=== PATIENT | female | born 1935 | race Caucasian/White ===

== ENCOUNTER 2018-02-06 04:07 | Emergency (ER) | payer MEDICARE, OTHER ==
[~2018-02-06] VITALS: Ht 157.5 cm; Wt 72.6 kg
[2018-02-06] MEDS ORDERED: HYDR-86 PO (04:25)
[2018-02-06] MEDS ORDERED: Zestril40 MG PO (04:25)
[2018-02-06] MEDS ORDERED: MONT10T PO (04:25)
[2018-02-06] MEDS ORDERED: DOXE10 PO (04:25)
[2018-02-06] MEDS ORDERED: FURO20 PO (04:25)
[2018-02-06] MEDS ORDERED: CYAN1000I IM (04:26)
[2018-02-06] MEDS ORDERED: ALPR1 PO (04:26)
[2018-02-06] MEDS ORDERED: FOLI400 PO (04:26)
== END 2018-02-06 05:59 | disposition home or self-care (01) ==
LOC: ER 04:07
DX: M25.461 Effusion, right knee (principal); M25.861 Other specified joint disorders, right knee; I10 Essential (primary) hypertension; Z87.891 Personal history of nicotine dependence
CPT/HCPCS: 29505; 73562-RT; 99283

== ENCOUNTER 2019-07-04 08:57 | Inpatient (IN) | payer MEDICARE, OTHER ==
[~2019-07-04] VITALS: Ht 157.5 cm; Wt 77.9 kg
[~2019-07-04 08:57] MED LIST: ALPR1 PO; CYAN1000I IM; DOXE10 PO; FOLI400 PO; FURO20 PO; HYDR-86 PO; MONT10T PO; Zestril40 MG PO
[2019-07-04] MEDS ORDERED: ALPR1 PO (09:24)
--- NOTE | 2019-07-04 09:42 | NUR ---
History, Chart, Medications and Allergies reviewed before start of procedure. Patient confirms NPO status and agrees with scheduled surgery. Lungs clear T/O to Auscultation. Pre-Op teaching done. Pt verbalizes understanding. Patient reports completing Chlorhexadine shower X2 prior to admission to hospital. PATIENT HAS FULL TOP PLATE W/ADHESIVE IN PLACE, STATES WILL NOT COME OUT, WILL NOTIFY DR ARRIAZA. GLASSES WILL BE PLACED IN PACU FOR PATIENT.
--- NOTE | 2019-07-04 10:24 | NUR ---
[employer] REPORT COMPLETED AT BEDSIDE WITH ANGELITO BARNES RN.
--- NOTE | 2019-07-04 10:25 | NUR ---
PATIENT UP TO BR FOR UNMEASURED VOID.
--- NOTE | 2019-07-04 18:40 | NUR ---
POST OP: REPORT RECIEVED FROM [facility]. PT TO UNIT AT ABOUT 1330. VSS, A/O. SEE HEAD TO TOE ASSESSMENT.
--- NOTE | 2019-07-04 19:30 | NUR ---
SUMMARY: PT IS POD0 R TKA. DOING WELL POST OP, VSS, A/O. ABLE TO VOID. FULL SENSATION IN R LEG BY THE END OF SHIFT. PHYSICAL THERAPY TO AMBULATE TOMORROW. SURGICAL SITE WNL. SEE EMAR FOR PAIN MANAGEMENT. NO ACUTE CONCERNS AT THIS TIME. REPORT GIVEN TO NICHOLAS GA
[2019-07-05 04:03] LABS: BASOPHILS ABSOLUTE AUTO 0.02 K/mm3 (0.00-0.23); BASOPHILS PERCENT AUTO 0 % (0-2); EOSINOPHILS PERCENT AUTO 0 % (0-6); Hematocrit 37.6 % (33.0-51.0); Hemoglobin 12.2 g/dL (11.5-16.0); IMMATURE GRAN ABSOLUTE AUTO 0.02 K/mm3 (0.00-0.10); IMMATURE GRAN PERCENT AUTO 0 % (0-1); LYMPHOCYTES ABSOLUTE AUTO 1.08 K/mm3 (0.84-5.20); LYMPHOCYTES PERCENT AUTO 12 % (21-46); MONOCYTES ABSOLUTE AUTO 0.79 K/mm3 (0.16-1.47); MONOCYTES PERCENT AUTO 9 % (4-13); Mean Corpuscular HGB 30.1 pg (26.0-34.0); Mean Corpuscular HGB Conc 32.4 g/dL (31.5-36.5); Mean Corpuscular Volume 93 fL (80-100); Mean Platelet Volume 9.7 fL (9.1-12.4); NEUTROPHILS ABSOLUTE AUTO 7.34 K/mm3 (1.96-9.15); NEUTROPHILS PERCENT AUTO 79 % (41-73); Platelet Count 203 K/mm3 (150-400); RDW Coefficient Variation 12.1 % (11.7-14.2); RDW Standard Deviation 41.4 fL (35.1-46.3); Red Blood Cell Count 4.05 M/mm3 (3.80-5.20); White Blood Cell Count 9.25 K/mm3 (4.00-11.30)
[2019-07-05 04:26] LABS: Bun/Creatinine Ratio 18.4 (12.0-20.0); Calcium, Blood 8.5 mg/dL (8.5-10.1); Creatinine, Blood 1.03 mg/dL (0.40-1.00); Potassium, Blood 4.8 mmol/L (3.5-5.5)
--- NOTE | 2019-07-05 05:15 | NUR ---
SHIFT SUMMARY HAS BEEN ABLE TO TOLERATE GETTING OOB TO AMBULATE TO BSC USING FWW AND GAIT BELT. WEIGHT BEARING TOLERATED. PAIN IS MUCH BETTER MANAGED AFTER SEVERAL DOSES THROUGHOUT SHIFT. RESTED WELL AT TIMES. STATES SHE IS LOOKING FORWARD TO GOING HOME IF POSSIBLE TODAY. SAFETY MEASURES IN PLACE. WILL GIVE HAND OFF TO ONCOMING SHIFT USING SBAR.
--- NOTE | 2019-07-05 09:47 | NUR ---
PT IN [facility] AT THIS TIME
[2019-07-05] MEDS ORDERED: ASPI81CH PO (10:11)
[2019-07-05] MEDS ORDERED: ACET500 PO (10:11)
[2019-07-05] MEDS ORDERED: OXYC5 PO (10:12)
--- NOTE | 2019-07-05 10:19 | NUR ---
07/05/19 1019 Myriam Cedeño VERIFICATIONS: EDIT CHART.
--- NOTE | 2019-07-05 16:29 | NUR ---
DISCHARGE: PACKET PRINTED AND DISCHARGE EDUCATION GIVEN. PT VERBALIZED UNDERSTANDING. CONFIRMED OUTPATIENT PHYSICAL THERAPY APPOINTMENTS. PT GIVEN SCRIPTS. PT LEFT UNIT VIA WHEELCHAIR WITH DAUGHTER AND CAMILA TAVERAS.
== END 2019-07-05 16:23 | disposition home or self-care (01) | DRG 470 ==
LOC: ORSCMMR 08:57 → SURS 10:19 → ORSCMMR 10:19 → ORD 10:30 → SURS 14:00
PROVIDERS: ADMIT Orthopaedic Surgery
PROC: 0SRC0J9 Replacement of Right Knee Joint with Synthetic Substitute, Cemented, Open Approach (ICD-10-PCS; principal; 2019-07-04 10:30)
DX: M17.11 Unilateral primary osteoarthritis, right knee (principal); K21.9 Gastro-esophageal reflux disease without esophagitis; I10 Essential (primary) hypertension; J44.9 Chronic obstructive pulmonary disease, unspecified; E66.9 Obesity, unspecified; Z79.51 Long term (current) use of inhaled steroids; Z79.899 Other long term (current) drug therapy; Z88.5 Allergy status to narcotic agent; Z88.2 Allergy status to sulfonamides; Z88.8 Allergy status to other drugs, medicaments and biological substances; Z87.891 Personal history of nicotine dependence
CPT/HCPCS: 36415; 73560-RT; 80048; 83735; 85025; 88300; 97110; 97116; 97162; 97530; C1713; C1776; J0171; J0690; J0735; J1100; J1170; J1885; J2250; J2370; J2405; J2704; J2795; J3010; J3490; J7120

== ENCOUNTER 2019-07-09 11:37 | Inpatient (IN) | payer MEDICARE, OTHER ==
[~2019-07-09] VITALS: Ht 157.5 cm; Wt 82.1 kg
[~2019-07-09 11:37] MED LIST changes: +ACET500 PO; +ASPI81CH PO; +OXYC5 PO
[2019-07-09 12:31] LABS: BASOPHILS ABSOLUTE AUTO 0.02 K/mm3 (0.00-0.23); BASOPHILS PERCENT AUTO 0 % (0-2); EOSINOPHILS ABSOLUTE AUTO 0.14 K/mm3 (0.00-0.68); EOSINOPHILS PERCENT AUTO 2 % (0-6); Hematocrit 37.5 % (33.0-51.0); Hemoglobin 12.2 g/dL (11.5-16.0); IMMATURE GRAN ABSOLUTE AUTO 0.03 K/mm3 (0.00-0.10); IMMATURE GRAN PERCENT AUTO 0 % (0-1); LYMPHOCYTES ABSOLUTE AUTO 1.47 K/mm3 (0.84-5.20); LYMPHOCYTES PERCENT AUTO 19 % (21-46); MONOCYTES ABSOLUTE AUTO 0.89 K/mm3 (0.16-1.47); MONOCYTES PERCENT AUTO 12 % (4-13); Mean Corpuscular HGB 30.2 pg (26.0-34.0); Mean Corpuscular HGB Conc 32.5 g/dL (31.5-36.5); Mean Corpuscular Volume 93 fL (80-100); Mean Platelet Volume 9.7 fL (9.1-12.4); NEUTROPHILS ABSOLUTE AUTO 5.19 K/mm3 (1.96-9.15); NEUTROPHILS PERCENT AUTO 67 % (41-73); Platelet Count 247 K/mm3 (150-400); RDW Coefficient Variation 12.7 % (11.7-14.2); RDW Standard Deviation 43.4 fL (35.1-46.3); Red Blood Cell Count 4.04 M/mm3 (3.80-5.20); White Blood Cell Count 7.74 K/mm3 (4.00-11.30)
[2019-07-09 12:49] LABS: Alanine Aminotransfer (ALT/SGP 25 U/L (12-78); Albumin/Globulin Ratio 0.8 (0.8-1.8); Alk Phos 83 U/L (50-136); Anion Gap 6 mmol/L (6-16); Aspartate Aminotrans (AST/SGOT 29 U/L (12-37); Bilirubin, Total 1.3 mg/dL (0.1-1.0); Blood Urea Nitrogen 15 mg/dL (8-24); Bun/Creatinine Ratio 21.1 (12.0-20.0); CO2, Blood 27 mmol/L (21-32); Calcium, Blood 8.8 mg/dL (8.5-10.1); Chloride, Blood 104 mmol/L (98-108); Creatinine, Blood 0.71 mg/dL (0.40-1.00); Globulin, Blood 3.8 g/dL (2.2-4.0); Glomerular Filtration Rate >60 (60-); Glucose, Blood 112 mg/dL (70-99); Potassium, Blood 4.5 mmol/L (3.5-5.5); Sodium, Blood 137 mmol/L (136-145); Total Protein, Blood 6.8 g/dL (6.4-8.2)
[2019-07-09] MEDS ORDERED: Alprazolam1 MG PO (15:05)
[2019-07-09] MEDS ORDERED: Norco 10-325 T1 EACH PO (16:22)
[2019-07-09 18:07] LABS: Body Fluid Crystals NEG (NEGATIVE)
[2019-07-09 18:10] LABS: BODY FLUID RBC 0.862 M/mm3 (0-0); RBC Count, Synovial Fluid 862000 /mm3 (0-0); WBC Count, Synovial Fluid 7971 /mm3 (0-180)
--- NOTE | 2019-07-09 18:34 | NUR ---
PT ARRIVED TO THE UNIT AT APPROXIMATELY 1630. PT ALERT AND ORIENTED AT TIME OF ARRIVAL. PT CRYING AND SHAKING R/T PAIN. SHE RATED HER PAIN AT 10/10. PT'S RIGHT LEG WAS ELEVATED ON PILLOWS WITH THE KNEE IN A STRAIGHT POSITION WHICH THE PT REPORTS SHE DID NOT TOLERATE AT HOME. PT ASKED MULTIPLE TIMES FOR A PILLOW TO BE PLACED BEHIND HER KNEE. PT WAS EDUCATED THAT PLACING A PILLOW OR TOWEL BEHIND THE KNEE AND RESTING THE KNEE IN A BENT POSITION WILL CAUSE INCREASED PAIN WITH MOVEMENT AND SHE COULD LOSE THE ABILITY TO STRAIGHTEN THE KNEE. PT REPORTED SHE UNDERSTOOD. PT WAS PROVIDED WITH IV DILAUDID, SHE REPORTED TO THIS RN SHE HAS ONLY HAD RELIEF WITH MORPHINE IN THE PAST. SHE ALSO REPORTED OXYCODONE MADE HER SICK AND NORCO WORKS BETTER. BOTH ORDERS WERE CHANGED PER DR. PHILLIPS. PT'S KNEE IS SWOLLEN AND BRUISED AT TIME OF ARRIVAL. SHE HAS SWELLING AND REDNESS TO THE LATERAL AND MEDIAL SIDES OF HER THIGH. DR. PHILLIPS NOTIFIED OF SWELLING. WILL CONTINUE TO MONITOR.
--- NOTE | 2019-07-09 18:41 | NUR ---
SHIFT SUMMARY PT CONTINUES TO RATE HER PAIN HIGH DESPITE THE USE OF IV PAIN MEDICATION. WHEN PT IS NOT CRYING R/T PAIN AND HAS HAD PAIN MEDICATION, SHE DISTRACTS FROM PAIN AND VISITS WITH NURSES AND OTHER STAFF. AFTER PAIN MEDICATION FLACC SCALE SHOWS PT AT 3/10 BUT PT RATES PAIN AT 9/10. MORPHINE IV DID DECREASE PT'S SELF REPORTED PAIN SCORE TO 8/10. PT HAD RADIOLOGY GUIDED ASPIRATION OF SYNOVIAL FLUID THIS EVENING. PT'S LEG HAS REMAINED ELEVATED ON PILLOWS AND IN THE STRAIGHT POSITION WITH ICE IN PLACE MUCH POSSIBLE. SWELLING AND REDNESS TO THE KNEE AREA APPEARS IMPROVED. PT APPEARS MORE COMFORTABLE THAN ON ADMIT. PT IS TOLERATING PO. PT ON CONTINUOUS PULSE OX FOR HIGH RISK PAIN MANAGMENT. VSS. WILL MONITOR UNTIL REPORT TO ONCOMING RN.
--- NOTE | 2019-07-09 18:46 | NUR ---
DRESSING CHANGE PT'S AQUACEL DRESSING WAS CHANGED. PT HAD SMALL AREAS AT EDGE OF AQUACEL DRESSING THAT APPEARED TO BE OPEN BLISTERS, DR. PHILLIPS NOTIFIED. SKIN BARRIER USED AROUND EDGE OF AQUACEL DRESSING TO PROTECT SKIN FROM FURTHER BLISTERING. WILL CONTINUE TO MONITOR.
[2019-07-09 18:50] LABS: Appearance, Synovial Fluid Bloody (Clear); Color, Synovial Fluid Red (None-P Yel); Lymphs, Synovial Fluid 8 % (0-15); Monocytes/Macrophages, Synovia 2 % (0-65); Neutrophils, Synovial Fluid 90 % (0-24)
--- NOTE | 2019-07-10 16:05 | NUR ---
SUMMARY NO ACUTE CHANGES THIS SHIFT. PT WORKED W/THERAPY. VENOUS DUPLEX PERFORMED TO RULE OUT DVT TO RLE. PT STILL QUITE PAINFUL W/MOVEMENT. MEDICATING PER ORDERS FOR PAIN. POLAR PACK IN PLACE. RLE KEPT STRAIGHT WHILE AT REST.PT APPEARED TO HAVE SENSITIVITY TO ADHESIVE ON AQUACEL; DR PHILLIPS PLACED GUAZE AND ELSA WRAP TO RLE. PT'S DAUGHTER AT BEDSIDE. CALL LIGHT IN REACH.
--- NOTE | 2019-07-11 06:12 | NUR ---
SHIFT SUMMARY HAS RESTED WELL THIS SHIFT. GOT OUT OF BED AND SAT ON COMMODE, WAS UNABLE TO GO. BLADDER SCAN SHOWS 300ML IN BLADDER. WILL GET OOB AND ONTO BSC AGAIN. ICE PLACED TO KNEE REPLENISHED NEEDED THROUGHOUT SHIFT. MEDICATED FOR PAIN X2 THIS SHIFT. DENIES FURTHER NEEDS AT THIS TIME. SAFETY MEASURES IN PLACE. WILL GIVE HAND OFF TO ONCOMING SHIFT USING SBAR.
--- NOTE | 2019-07-11 10:47 | NUR ---
DR MCDONNELL HERE TO SEE PT. DISCUSSED PT PAIN AND MEDS.
--- NOTE | 2019-07-11 11:04 | NUR ---
DR MCDONNELL REPORTED EARLIER THAT PT COULD EAT. DR REPORTS TO HOLD ASA TODAY. AND RESUME TOMMORROW AT ONCE DAILY.
--- NOTE | 2019-07-11 16:39 | NUR ---
DISCUSSED PT'S STATUS WITH DR MCDONNELL.
--- NOTE | 2019-07-11 17:47 | NUR ---
SHIFT SUMMARY PT EATING AND DRINKING WELL, VOIDING. PT BEEN EDUCATED ON PAIN MGMT, I/S. PT BEEN ASSISTED WITH ADL'S PRN. PT BEEN MED PRN FOR PAIN. DR MCDONNELL BEEN TO SEE PT TODAY WELL GIVEN UPDATE THIS AFTERNOON/EVENING. PT WORKED WITH THERAPY. PT USING [address].
--- NOTE | 2019-07-11 19:10 | NUR ---
recvd report from previous shift NICHOLAS Potts. pt in bathroom on commode, calls for asssitance. a/0 x 4, pleasant/cooperative, ambulates to bed with gait belt, fww.
--- NOTE | 2019-07-12 06:02 | NUR ---
SHIFT SUMMARY: VSS, NO ACUTE CHANGES. PT REMAINED A/O X 4, PLEASANT/COOPERATIVE. PT UP TO BATHROOM WITH STANDBY ASSIST, GAIT BELT/FWW. PT REPORTS NO N/V, TOLERATING DIET, VOIDING, BM X 1 THIS SHIFT. PT APPEARS TO BE SLEEPING ON NURSE ROUNDING, AWAKE X 1 T/O SHIFT FOR BATHROOM USE.
--- NOTE | 2019-07-12 08:34 | NUR ---
LEONEL (PA) HERE TO SEE PT. DISCUSSED PT'S STATUS INCLUDING PAIN AND PAIN CONTROL.
--- NOTE | 2019-07-12 17:39 | NUR ---
SHIFT SUMMARY PT EATING AND DRINKING WELL. PT BEEN ASSISTED WITH ADL'S PRN. PT BEEN MED PRN PAIN. PT USING CALL LIGHT APPR. FAMILY BEEN IN/OUT OF ROOM TODAY. PT WORKED WITH THERAPY TODAY. 'Rosie BEEN TO SEE PT.
--- NOTE | 2019-07-13 04:11 | NUR ---
Pt alert and oriented. VSS. Patient states her pain has been getting better. Medicated for pain as ordered. Up with SBA and FWW. Ambulating to Bathroom. Voiding freely. Polar ice applied to RLE.
--- NOTE | 2019-07-13 08:19 | NUR ---
pt eating breakfast meds given
--- NOTE | 2019-07-13 13:06 | NUR ---
pt visiting physical therapy called asked if they can come and work with pt
--- NOTE | 2019-07-13 16:05 | NUR ---
HELPED PT TO BATHROOM TO VOID THEN BACK TO RECLINER PT DAUGHTER AT BEDSIDE VISITING WITH PT NEW ICE PUT IN HER POLAR PACK
--- NOTE | 2019-07-13 17:05 | NUR ---
DR Rosie MCDONNELL CALLED STATED SHE WILL BE OVER AFTER CLINIC TO CHECK ON PT
--- NOTE | 2019-07-13 17:32 | NUR ---
DR Rosie MCDONNELL BY TO SEE PT
--- NOTE | 2019-07-13 17:52 | NUR ---
DR MCDONNELL CHANGED PT'S DRESSING
--- NOTE | 2019-07-13 18:48 | NUR ---
PT ASSISTED INTO BED WITH 2 PERSON ALSO ORDERED PT POWER PUDDING
--- NOTE | 2019-07-14 05:09 | NUR ---
Patient A/O x4. VSS. Ambulating to bathroom with SBA and FWW. Complaints of severe pain to R Knee; medicated as ordered. Ice applied to RLE. Voiding freely.
--- NOTE | 2019-07-14 13:32 | NUR ---
REPORT CALLED TO [facility] AT THIS TIME. NO ACUTE CHANGES.
== END 2019-07-14 13:48 | DRG 561 ==
LOC: ER 11:37 → SURS 11:38
PROVIDERS: Emergency Medicine; ADMIT Orthopaedic Surgery
DX: T84.84XA Pain due to internal orthopedic prosthetic devices, implants and grafts, initial encounter (principal); Z96.651 Presence of right artificial knee joint; I10 Essential (primary) hypertension; Z87.891 Personal history of nicotine dependence; Z88.5 Allergy status to narcotic agent; Z88.2 Allergy status to sulfonamides; Z88.8 Allergy status to other drugs, medicaments and biological substances
CPT/HCPCS: 20611; 36415; 73560-RT; 76942; 80053; 85025; 85651; 86140; 87070; 87075; 87205; 89051; 89060; 93971; 94762; 96361; 96374; 96375; 96376; 97110; 97116; 97162; 97166; 97530; 97535; 99284-25; G0378; J1170; J1885; J2270; J2405; J7030

== ENCOUNTER 2019-08-11 08:39 | Emergency (ER) | payer MEDICARE, OTHER ==
[~2019-08-11] VITALS: Ht 157.5 cm; Wt 74.8 kg
[~2019-08-11 08:39] MED LIST changes: +Alprazolam1 MG PO; +Norco 10-325 T1 EACH PO
== END 2019-08-11 10:16 | disposition home or self-care (01) ==
LOC: ER 08:39
DX: M53.3 Sacrococcygeal disorders, not elsewhere classified (principal); G89.29 Other chronic pain; I10 Essential (primary) hypertension; Z88.2 Allergy status to sulfonamides; Z88.5 Allergy status to narcotic agent; Z79.899 Other long term (current) drug therapy
CPT/HCPCS: 72100; 96372; 99283-25; J1100; J1170

== ENCOUNTER → 2019-11-03 | Outpatient (CLI) | payer MEDICARE, OTHER | END | disposition home or self-care (01) | LOC: LAB 11:45 → LAB SHORT 11:45 | DX: J02.9 Acute pharyngitis, unspecified (principal) | CPT/HCPCS: 87081; 87147 ==

== ENCOUNTER → 2019-11-16 | Outpatient (CLI) | payer MEDICARE, OTHER ==
[2019-11-17 21:30] LABS: Adenovirus F 40/41 Not Detected (NOT DETECT); Astrovirus Not Detected (NOT DETECT); Campylobacter Sp Not Detected (NOT DETECT); Cryptosporidium Not Detected (NOT DETECT); Cyclospora Cayetanensis Not Detected (NOT DETECT); E. Coli O157 Not Detected (NOT DETECT); Entamoeba Histolytica Not Detected (NOT DETECT); Enteroaggregative E. coli-EAEC Not Detected (NOT DETECT); Enteropathogenic E. coli-EPEC Not Detected (NOT DETECT); Enterotoxigenic E. coli-ETEC Not Detected (NOT DETECT); Giardia Lamblia Not Detected (NOT DETECT); Norovirus GI/GII Not Detected (NOT DETECT); Plesiomonas Shigelloides Not Detected (NOT DETECT); Rotavirus A Not Detected (NOT DETECT); Salmonella Sp Not Detected (NOT DETECT); Sapovirus Not Detected (NOT DETECT); Shiga Toxin-prod E. coli-STEC Not Detected (NOT DETECT); Shigella/Enteroin E. coli-EIEC Not Detected (NOT DETECT); Vibrio Cholerae Not Detected (NOT DETECT); Vibrio Sp Not Detected (NOT DETECT); Yersinia Enterocolitica Not Detected (NOT DETECT)
== END | disposition home or self-care (01) ==
LOC: LAB EV 17:00
PROVIDERS: Family Medicine
DX: R19.7 Diarrhea, unspecified (principal)
CPT/HCPCS: 0097U

== ENCOUNTER 2021-10-29 09:30 | Day surgery (SDC) | payer MEDICARE, OTHER ==
[~2021-10-29] VITALS: Ht 157.5 cm; Wt 74.8 kg
--- NOTE | 2021-10-29 10:25 | NUR ---
10/29/21 1025 LLOYD MORENO 3 ATTEMPTS AT IV. FIRST ATTEMPT BY MA IN R HAND INFILTRATED. SECOND ATTEMPT BY MA IN R WRIST INFILTRATED. THIRD ATTEMPT BY RN IN R AC SUCCESSFUL.
== END 2021-10-29 12:07 | disposition home or self-care (01) ==
LOC: ORSCSDS 09:30
PROVIDERS: Student in an Organized Health Care Education/Training Program
PROC: 0D758ZZ Dilation of Esophagus, Via Natural or Artificial Opening Endoscopic (ICD-10-PCS; principal; 2021-10-29 11:15)
PROC: 0DB58ZX Excision of Esophagus, Via Natural or Artificial Opening Endoscopic, Diagnostic (ICD-10-PCS; principal; 2021-10-29 11:15)
PROC: 0DB48ZX Excision of Esophagogastric Junction, Via Natural or Artificial Opening Endoscopic, Diagnostic (ICD-10-PCS; principal; 2021-10-29 11:15)
PROC: 0DB68ZX Excision of Stomach, Via Natural or Artificial Opening Endoscopic, Diagnostic (ICD-10-PCS; principal; 2021-10-29 11:15)
DX: R13.10 Dysphagia, unspecified (principal); K44.9 Diaphragmatic hernia without obstruction or gangrene; I10 Essential (primary) hypertension; Z79.899 Other long term (current) drug therapy
CPT/HCPCS: 88305; 88342; J2704; J7120

== ENCOUNTER → 2022-05-14 | Outpatient (CLI) | payer MEDICARE, OTHER | END | disposition home or self-care (01) | LOC: LAB SHORT 11:30 | DX: J34.89 Other specified disorders of nose and nasal sinuses (principal) | CPT/HCPCS: 87070; 87075; 87077; 87147; 87186; 87205 ==

== ENCOUNTER 2022-07-19 06:28 | Inpatient (IN) | payer MEDICARE, OTHER ==
[~2022-07-19] VITALS: Ht 157.5 cm; Wt 83.2 kg
[~2022-07-19 06:28] MED LIST changes: -DOXE10 PO; +LISI20 PO; -MONT10T PO; -Norco 10-325 T1 EACH PO; +Norco 7.5-3251 EACH PO; -Zestril40 MG PO
[2022-07-19 08:16] LABS: BASOPHILS ABSOLUTE AUTO 0.04 K/mm3 (0.00-0.23); BASOPHILS PERCENT AUTO 1 % (0-2); EOSINOPHILS ABSOLUTE AUTO 0.17 K/mm3 (0.00-0.68); EOSINOPHILS PERCENT AUTO 3 % (0-6); Hematocrit 42.9 % (33.0-51.0); Hemoglobin 14.4 g/dL (11.5-16.0); IMMATURE GRAN ABSOLUTE AUTO 0.01 K/mm3 (0.00-0.10); IMMATURE GRAN PERCENT AUTO 0 % (0-1); LYMPHOCYTES ABSOLUTE AUTO 1.49 K/mm3 (0.84-5.20); LYMPHOCYTES PERCENT AUTO 28 % (21-46); MONOCYTES PERCENT AUTO 11 % (4-13); Mean Corpuscular HGB 30.5 pg (26.0-34.0); Mean Corpuscular HGB Conc 33.6 g/dL (31.5-36.5); Mean Corpuscular Volume 91 fL (80-100); Mean Platelet Volume 9.3 fL (9.1-12.4); NEUTROPHILS ABSOLUTE AUTO 2.94 K/mm3 (1.96-9.15); NEUTROPHILS PERCENT AUTO 56 % (41-73); Platelet Count 195 K/mm3 (150-400); RDW Coefficient Variation 12.4 % (11.7-14.2); RDW Standard Deviation 41.4 fL (35.1-46.3); Red Blood Cell Count 4.72 M/mm3 (3.80-5.20); White Blood Cell Count 5.25 K/mm3 (4.00-11.30)
[2022-07-19 08:38] LABS: Albumin, Blood 3.4 g/dL (3.4-5.0); Albumin/Globulin Ratio 1.1 (0.8-1.8); Bilirubin, Total 0.8 mg/dL (0.1-1.0); Bun/Creatinine Ratio 22.2 (12.0-20.0); Calcium, Blood 8.8 mg/dL (8.5-10.1); Creatinine, Blood 0.77 mg/dL (0.40-1.00); Globulin, Blood 3.2 g/dL (2.2-4.0); Total Protein, Blood 6.6 g/dL (6.4-8.2)
[2022-07-19 09:55] LABS: Source, Urine Voided
[2022-07-19 09:58] LABS: Appearance, Urine Hazy (Clear); Bilirubin, Urine Neg (Neg); Blood, Urine 2+ (Neg); Color, Urine Yellow (P-Yellow); Glucose Qualitative, Urine Neg (Neg); Ketones, Urine Neg (Neg); Leukocyte Esterase, Urine 3+ (Neg); Nitrite, Urine Neg (Neg); Protein, Urine 1+ (Neg); Urobilinogen, Urine NORM (Normal)
[2022-07-19 10:09] LABS: Bacteria Mod /hpf; Red Blood Cells, Urine 0-2 /hpf (0-2); Squamous Epithelial Cells Few /hpf (Few); White Blood Cells, Urine TNTC /hpf (0-5)
--- NOTE | 2022-07-19 13:55 | NUR ---
PT TO ROOM FROM ED. PT SBA TO BED FROM WHEELCHAIR. PT ALERT AND ORIENTED, CALLS APPROPRIATELY. PT ON RA, SPO2 > 92%. NS INFUSING AT 100ML/HR. DUAL NURSE SKIN ASSESSMENT COMPLETED BY NICHOLAS GERARDO AND NICHOLAS SEGOVIA. NO SKIN BREAKDOWN NOTED. PAIN TOLERABLE AT THE MOMENT. WILL CONTINUE TO MONITOR. CALL LIGHT WITHIN REACH.
--- NOTE | 2022-07-20 05:14 | NUR ---
SUMMARY: PATIENT DID WELL OVERNIGHT. IV PAIN MEDICATION GIVEN PER MAR. PATIENT AMBULATED UP TO RESTROOM A FEW TIMES SBA. IV HYDRATION RUNNING. VSS. PATIENT AOX4. BOWEL SOUNDS HYPOACTIVE. PATIENT REPORTS THAT ABDOMINAL PAIN COMES IN WAVES AND FEELS LIKE CHILD PAINS. ABDOMINAL XRAY SCHEDULED FOR THIS MORNING.
[2022-07-20 05:36] LABS: BASOPHILS ABSOLUTE AUTO 0.03 K/mm3 (0.00-0.23); BASOPHILS PERCENT AUTO 1 % (0-2); EOSINOPHILS ABSOLUTE AUTO 0.11 K/mm3 (0.00-0.68); EOSINOPHILS PERCENT AUTO 2 % (0-6); Hematocrit 41.9 % (33.0-51.0); Hemoglobin 13.8 g/dL (11.5-16.0); IMMATURE GRAN ABSOLUTE AUTO 0.02 K/mm3 (0.00-0.10); IMMATURE GRAN PERCENT AUTO 0 % (0-1); LYMPHOCYTES ABSOLUTE AUTO 1.27 K/mm3 (0.84-5.20); LYMPHOCYTES PERCENT AUTO 19 % (21-46); MONOCYTES ABSOLUTE AUTO 0.62 K/mm3 (0.16-1.47); MONOCYTES PERCENT AUTO 9 % (4-13); Mean Corpuscular HGB 30.4 pg (26.0-34.0); Mean Corpuscular HGB Conc 32.9 g/dL (31.5-36.5); Mean Corpuscular Volume 92 fL (80-100); Mean Platelet Volume 9.8 fL (9.1-12.4); NEUTROPHILS ABSOLUTE AUTO 4.55 K/mm3 (1.96-9.15); NEUTROPHILS PERCENT AUTO 69 % (41-73); Platelet Count 195 K/mm3 (150-400); RDW Coefficient Variation 12.5 % (11.7-14.2); RDW Standard Deviation 42.6 fL (35.1-46.3); Red Blood Cell Count 4.54 M/mm3 (3.80-5.20)
[2022-07-20 06:08] LABS: Bun/Creatinine Ratio 13.1 (12.0-20.0); Calcium, Blood 8.3 mg/dL (8.5-10.1); Creatinine, Blood 0.76 mg/dL (0.40-1.00)
--- NOTE | 2022-07-20 17:12 | NUR ---
SHIFT SUMMARY NO ACUTE CHANGES DURING SHIFT. PT ALERT AND ORIENTED, CALLS APPROPRIATELY. PT REMAINS NPO, SBFT XRAY COMPLETED. PT HAD EPISODES OF LOOSE STOOLS FOLLOWING ORAL CONTRAST. PT MEDICATED WITH NAUSEA AND PAIN MEDICATIONS X 1 DURING SHIFT. IV FLUIDS DECREASED TO 50ML/HR. WILL CONTINUE TO MONITOR. CALL LIGHT WITHIN REACH.
[2022-07-20] MEDS ORDERED: ALPRAZOLAM0.5 M1 PO (23:51)
[2022-07-21 05:01] LABS: BASOPHILS ABSOLUTE AUTO 0.01 K/mm3 (0.00-0.23); BASOPHILS PERCENT AUTO 0 % (0-2); EOSINOPHILS ABSOLUTE AUTO 0.01 K/mm3 (0.00-0.68); EOSINOPHILS PERCENT AUTO 0 % (0-6); Hematocrit 43.8 % (33.0-51.0); Hemoglobin 13.9 g/dL (11.5-16.0); IMMATURE GRAN ABSOLUTE AUTO 0.01 K/mm3 (0.00-0.10); IMMATURE GRAN PERCENT AUTO 0 % (0-1); LYMPHOCYTES PERCENT AUTO 22 % (21-46); MONOCYTES ABSOLUTE AUTO 0.56 K/mm3 (0.16-1.47); MONOCYTES PERCENT AUTO 10 % (4-13); Mean Corpuscular HGB Conc 31.7 g/dL (31.5-36.5); Mean Corpuscular Volume 94 fL (80-100); NEUTROPHILS ABSOLUTE AUTO 3.67 K/mm3 (1.96-9.15); NEUTROPHILS PERCENT AUTO 67 % (41-73); Platelet Count 191 K/mm3 (150-400); RDW Coefficient Variation 12.8 % (11.7-14.2); RDW Standard Deviation 44.2 fL (35.1-46.3); Red Blood Cell Count 4.64 M/mm3 (3.80-5.20); White Blood Cell Count 5.46 K/mm3 (4.00-11.30)
--- NOTE | 2022-07-21 05:30 | NUR ---
SUMMARY: PATIENT WAS SLIGHTLY ANXIOUS AND RESTLESS BEFORE BED. PATIENT REPORTS SHE TAKES XANAX AND DOXEPIN BEFORE BED AT HOME. CALLED MD AND RESTARTED THOSE MEDS. XRAY FROM 07/20 SHOWED NO EVIDENCE OF SBO. PATIENT STILL HAVING PAIN IN HER ABDOMEN, MEDICATED PER EMAR. NO NAUSEA THIS SHIFT. PATIENT REPORTS SHE HAD DIARRHEA PREVIOUS SHIFT BUT NO EPISODES OVERNIGHT. FLUIDS RUNNING. VSS. PATIENT NPO.
[2022-07-21 05:55] LABS: Albumin, Blood 3.2 g/dL (3.4-5.0); Anion Gap 5 mmol/L (6-16); Blood Urea Nitrogen 15 mg/dL (8-24); Bun/Creatinine Ratio 20.9 (12.0-20.0); CO2, Blood 26 mmol/L (21-32); Calcium, Blood 9.2 mg/dL (8.5-10.1); Chloride, Blood 123 mmol/L (98-108); Creatinine, Blood 0.72 mg/dL (0.40-1.00); Glomerular Filtration Rate 81 (60-); Glucose, Blood 140 mg/dL (70-99); Potassium, Blood 3.6 mmol/L (3.5-5.5)
[2022-07-21 05:56] LABS: Sodium, Blood 154 mmol/L (136-145)
[2022-07-21] MEDS ORDERED: MONT10T PO (12:50)
[2022-07-21] MEDS ORDERED: DOXE10 PO (12:52)
[2022-07-21 14:22] LABS: Bun/Creatinine Ratio 20.1 (12.0-20.0); Calcium, Blood 8.8 mg/dL (8.5-10.1); Creatinine, Blood 0.8 mg/dL (0.40-1.00); Potassium, Blood 3.4 mmol/L (3.5-5.5)
[2022-07-21] MEDS ORDERED: FAMO20 PO (15:17)
[2022-07-21] MEDS ORDERED: PANT20 PO (15:18)
== END 2022-07-21 18:06 | disposition home or self-care (01) | DRG 389 ==
LOC: ER 06:28 → MEDS 11:39
PROVIDERS: Emergency Medicine; Internal Medicine; ADMIT Family Medicine
DX: K56.600 Partial intestinal obstruction, unspecified as to cause (principal); N39.0 Urinary tract infection, site not specified; I10 Essential (primary) hypertension; B96.20 Unspecified Escherichia coli [E. coli] as the cause of diseases classified elsewhere; M54.9 Dorsalgia, unspecified; G89.29 Other chronic pain; Z98.890 Other specified postprocedural states; Z88.2 Allergy status to sulfonamides; Z88.8 Allergy status to other drugs, medicaments and biological substances; Z88.5 Allergy status to narcotic agent; Z88.7 Allergy status to serum and vaccine; Z91.018 Allergy to other foods; Z79.811 Long term (current) use of aromatase inhibitors; Z79.01 Long term (current) use of anticoagulants; Z79.891 Long term (current) use of opiate analgesic; Z90.710 Acquired absence of both cervix and uterus; Z90.49 Acquired absence of other specified parts of digestive tract; Z87.891 Personal history of nicotine dependence
CPT/HCPCS: 36415; 74177; 74250; 80048; 80053; 80069; 81001; 83690; 85025; 87077; 87086; 87186; A9270; C9113; J0696; J2270; J2405; J3010; J7030; J7070; Q9967

== ENCOUNTER → 2022-07-24 | Outpatient (CLI) | payer MEDICARE, OTHER ==
[~2022-07-24] MED LIST changes: +ALPRAZOLAM0.5 M1 PO; +DOXE10 PO; +FAMO20 PO; +MONT10T PO; +PANT20 PO
[2022-07-25 10:52] LABS: Campylobacter Sp Not Detected (NOT DETECT)
[2022-07-25 10:53] LABS: Adenovirus F 40/41 Not Detected (NOT DETECT); Astrovirus Not Detected (NOT DETECT); Cryptosporidium Not Detected (NOT DETECT); Cyclospora Cayetanensis Not Detected (NOT DETECT); E. Coli O157 Not Detected (NOT DETECT); Entamoeba Histolytica Not Detected (NOT DETECT); Enteroaggregative E. coli-EAEC Not Detected (NOT DETECT); Enteropathogenic E. coli-EPEC Not Detected (NOT DETECT); Enterotoxigenic E. coli-ETEC Not Detected (NOT DETECT); Giardia Lamblia Not Detected (NOT DETECT); Norovirus GI/GII Not Detected (NOT DETECT); Plesiomonas Shigelloides Not Detected (NOT DETECT); Rotavirus A Not Detected (NOT DETECT); Salmonella Sp Not Detected (NOT DETECT); Sapovirus Not Detected (NOT DETECT); Shiga Toxin-prod E. coli-STEC Not Detected (NOT DETECT); Shigella/Enteroin E. coli-EIEC Not Detected (NOT DETECT); Vibrio Cholerae Not Detected (NOT DETECT); Vibrio Sp Not Detected (NOT DETECT); Yersinia Enterocolitica Not Detected (NOT DETECT)
== END ==
LOC: LAB 18:00 → LAB SHORT 18:00
PROVIDERS: Family Medicine
DX: R19.7 Diarrhea, unspecified (principal); K56.609 Unspecified intestinal obstruction, unspecified as to partial versus complete obstruction
CPT/HCPCS: 87507

== ENCOUNTER 2022-09-26 11:05 | Emergency (ER) | payer MEDICARE, OTHER ==
[~2022-09-26] VITALS: Ht 157.5 cm; Wt 72.6 kg
[2022-09-26 11:52] LABS: BASOPHILS ABSOLUTE AUTO 0.03 K/mm3 (0.00-0.23); BASOPHILS PERCENT AUTO 1 % (0-2); EOSINOPHILS ABSOLUTE AUTO 0.17 K/mm3 (0.00-0.68); EOSINOPHILS PERCENT AUTO 3 % (0-6); Hematocrit 44.7 % (33.0-51.0); IMMATURE GRAN ABSOLUTE AUTO 0.01 K/mm3 (0.00-0.10); IMMATURE GRAN PERCENT AUTO 0 % (0-1); LYMPHOCYTES ABSOLUTE AUTO 1.88 K/mm3 (0.84-5.20); LYMPHOCYTES PERCENT AUTO 36 % (21-46); MONOCYTES ABSOLUTE AUTO 0.61 K/mm3 (0.16-1.47); MONOCYTES PERCENT AUTO 12 % (4-13); Mean Corpuscular HGB 31.3 pg (26.0-34.0); Mean Corpuscular HGB Conc 33.6 g/dL (31.5-36.5); Mean Corpuscular Volume 93 fL (80-100); Mean Platelet Volume 9.6 fL (9.1-12.4); NEUTROPHILS PERCENT AUTO 48 % (41-73); Platelet Count 187 K/mm3 (150-400); RDW Coefficient Variation 12.4 % (11.7-14.2); RDW Standard Deviation 42.8 fL (35.1-46.3); Red Blood Cell Count 4.79 M/mm3 (3.80-5.20)
[2022-09-26 12:03] LABS: Albumin, Blood 3.7 g/dL (3.4-5.0); Albumin/Globulin Ratio 1.2 (0.8-1.8); Bilirubin, Total 1.1 mg/dL (0.1-1.0); Bun/Creatinine Ratio 29.4 (12.0-20.0); Calcium, Blood 9.2 mg/dL (8.5-10.1); Creatinine, Blood 0.85 mg/dL (0.40-1.00); Globulin, Blood 3.2 g/dL (2.2-4.0); Potassium, Blood 4.3 mmol/L (3.5-5.5); Total Protein, Blood 6.9 g/dL (6.4-8.2)
== END 2022-09-26 14:45 | disposition home or self-care (01) ==
LOC: ER 11:05
PROVIDERS: Physician Assistant
DX: R06.02 Shortness of breath (principal); Z79.899 Other long term (current) drug therapy; Z87.891 Personal history of nicotine dependence
CPT/HCPCS: 36415; 71046; 80053; 83880; 84484; 85025; 93005; 93010

== ENCOUNTER 2024-09-02 00:39 | Emergency (ER) | payer MEDICARE, OTHER ==
[~2024-09-02] VITALS: Ht 157.5 cm; Wt 74.8 kg
[2024-09-02 02:13] LABS: Albumin, Blood 3.5 g/dL (3.4-5.0); Albumin/Globulin Ratio 0.9 (0.8-1.8); Bilirubin, Total 0.6 mg/dL (0.1-1.0); Bun/Creatinine Ratio 28.8 (12.0-20.0); Calcium, Blood 9.3 mg/dL (8.5-10.1); Creatinine, Blood 0.9 mg/dL (0.40-1.00); Globulin, Blood 3.9 g/dL (2.2-4.0); Potassium, Blood 4.7 mmol/L (3.5-5.5); Total Protein, Blood 7.4 g/dL (6.4-8.2)
[2024-09-02 02:17] LABS: BASOPHILS ABSOLUTE AUTO 0.04 K/mm3 (0.00-0.23); BASOPHILS PERCENT AUTO 1 % (0-2); EOSINOPHILS ABSOLUTE AUTO 0.17 K/mm3 (0.00-0.68); EOSINOPHILS PERCENT AUTO 2 % (0-6); Hematocrit 43.5 % (33.0-51.0); Hemoglobin 14.6 g/dL (11.5-16.0); IMMATURE GRAN ABSOLUTE AUTO 0.01 K/mm3 (0.00-0.10); IMMATURE GRAN PERCENT AUTO 0 % (0-1); LYMPHOCYTES ABSOLUTE AUTO 1.75 K/mm3 (0.84-5.20); LYMPHOCYTES PERCENT AUTO 24 % (21-46); MONOCYTES ABSOLUTE AUTO 0.82 K/mm3 (0.16-1.47); MONOCYTES PERCENT AUTO 11 % (4-13); Mean Corpuscular HGB 30.9 pg (26.0-34.0); Mean Corpuscular HGB Conc 33.6 g/dL (31.5-36.5); Mean Corpuscular Volume 92 fL (80-100); Mean Platelet Volume 10.1 fL (9.1-12.4); NEUTROPHILS ABSOLUTE AUTO 4.43 K/mm3 (1.96-9.15); NEUTROPHILS PERCENT AUTO 61 % (41-73); Platelet Count 225 K/mm3 (150-400); RDW Coefficient Variation 12.4 % (11.7-14.2); Red Blood Cell Count 4.73 M/mm3 (3.80-5.20); White Blood Cell Count 7.22 K/mm3 (4.00-11.30)
[2024-09-02] MEDS ORDERED: FentaNYL Citrate 50 MCG/ML 2 ML Injection IV ONE (02:45)
[2024-09-02] MEDS ORDERED: Ondansetron HCl 2 MG / ML 2ML Vial IV ONE (02:45)
[2024-09-02] MEDS ORDERED: Mag Hydrox/AL Hydrox/Simeth 30 ML UDC PO ONE (05:55)
[2024-09-02] MEDS ORDERED: OMEP20ER PO (05:59)
[2024-09-02] MEDS ORDERED: ONDA4ODT MM (05:59)
[2024-09-02] MEDS ORDERED: RX Prepack 2 Tabs Ondansetron ODT 4MG UD ONE (06:00)
[2024-09-02 06:14] VITALS: BP 160/73
== END 2024-09-02 06:17 | disposition home or self-care (01) ==
LOC: ER 00:39
PROVIDERS: Student in an Organized Health Care Education/Training Program
DX: K29.70 Gastritis, unspecified, without bleeding (principal); I10 Essential (primary) hypertension; K21.9 Gastro-esophageal reflux disease without esophagitis; Z87.891 Personal history of nicotine dependence; Z79.899 Other long term (current) drug therapy; Z88.2 Allergy status to sulfonamides; Z88.5 Allergy status to narcotic agent; Z91.018 Allergy to other foods; Z88.7 Allergy status to serum and vaccine; Z88.8 Allergy status to other drugs, medicaments and biological substances
CPT/HCPCS: 74177; 80053; 83690; 84484; 85025; 93005; 93010; 96374; 96375; 99284-25; A9270; J2405; J3010; Q9967